=== PATIENT | female | born 1980 | race Caucasian/White ===

== ENCOUNTER 2025-01-11 21:33 | Emergency (ER) | payer SELFPAY ==
[~2025-01-11] VITALS: Ht 170.2 cm; Wt 64.0 kg
[2025-01-11 21:36] VITALS: O2SAT 99
[2025-01-11 22:12] LABS: BASOPHILS % 0.5 % (0.0-2.0); EOSINOPHILS % 0.2 % (0.0-5.0); HEMATOCRIT. 39.5 % (36.0-48.0); HEMOGLOBIN. 13.1 g/dL (12.0-16.0); LYMPHOCYTES % 14.0 % (20.0-50.0); MEAN PLATELET VOLUME 8.4 fl (7.4-10.4); MONOCYTES % 4.1 % (2.0-8.0); NEUTROPHILS % 81.2 % (40.0-76.0); PLATELET 211 x1000/uL (130-400); RED BLOOD CELL COUNT 4.61 mill/uL (4.2-5.4); RED CELL DISTRIBUTION WIDTH 13.4 % (11.6-14.6)
[2025-01-11 22:26] LABS: CREATININE 0.7 mg/dL (0.6-1.0); ETHANOL BLOOD < 10 mg/dL (<10); UREA NITROGEN BLOOD 11 mg/dL (9-23)
[2025-01-11 22:33] LABS: HCG SCREEN NEGATIVE
[2025-01-12 01:58] LABS: *AMPHETAMINES SCREEN URINE NEGATIVE (NEGATIVE); *BARBITURATES SCREEN URINE NEGATIVE (NEGATIVE); *BENZODIAZEPINES SCREEN URINE NEGATIVE (NEGATIVE); CLARITY URINE CLOUDY (CLEAR); COLOR URINE YELLOW (YELLOW); SPECIFIC GRAVITY URINE 1.012 (1.005-1.030)
[2025-01-12 01:59] LABS: *COCAINE SCREEN URINE NEGATIVE (NEGATIVE); CANNABINOID URINE SCREEN NEGATIVE (NEGATIVE); ECSTASY MDMA SCREEN URINE CONF.TEST INDICATED (NEGATIVE); GLUCOSE URINE NEGATIVE (NEGATIVE); KETONES URINE NEGATIVE (NEGATIVE); LEUKOCYTE ESTERASE URINE TRACE (NEGATIVE); METHADONE URINE SCREEN NEGATIVE (NEGATIVE); NITRITE URINE NEGATIVE (NEGATIVE); OCCULT BLOOD URINE 1+ (NEGATIVE); OPIATES URINE SCREEN NEGATIVE (NEGATIVE); PH URINE 5.5 (4.5-8.0); PHENCYCLIDINE URINE SCREEN NEGATIVE (NEGATIVE); PROTEIN URINE NEGATIVE (NEGATIVE); UROBILINOGEN URINE 0.2 E.U./dL (0.2-1.0)
[2025-01-12 02:34] LABS: BACTERIA URINE TRACE; SQUAMOUS EPITHELIAL CELL URINE 3+ /lpf (RARE/1+); WBC URINE 0-2 /hpf (0-2)
[2025-01-12 02:35] LABS: YEAST URINE 1+
[2025-01-12 06:10] VITALS: TEMP 37.2
[2025-01-12] MEDS ORDERED: HYDROXYZINE 25MG TABLET PO PRN (11:15)
[2025-01-12 19:07] VITALS: BP 101/55; PULSE 89; RESP 17; O2SAT 98
[2025-01-13] MEDS ORDERED: FLUOXETINE HCL 10 MG CAPSULE PO SCH (09:00)
== END 2025-01-12 19:29 ==
LOC: ER 21:33
DX: T43.212A Poisoning by selective serotonin and norepinephrine reuptake inhibitors, intentional self-harm, initial encounter (principal); R45.851 Suicidal ideations; F31.9 Bipolar disorder, unspecified; R41.82 Altered mental status, unspecified; Z79.899 Other long term (current) drug therapy; Z20.822 Contact with and (suspected) exposure to COVID-19; Y92.89 Other specified places as the place of occurrence of the external cause
CPT/HCPCS: 80048; 80307; 80329; 80320; 84703; 83735; 85025; 36415; 93005; 99285; 80305; 81003; 70450; 87426; Z7610 ×2; G0480